=== PATIENT | male | born 1995 | race Caucasian/White ===

== ENCOUNTER 2025-06-07 12:33 | Emergency (ER) | payer BC, SELFPAY ==
[2025-06-07 12:44] VITALS: BP 127/90; PULSE 110; RESP 16; TEMP 37.1; O2SAT 99; BMI 31.7
--- NOTE | 2025-06-07 13:59 | ECG_ITS ---
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 Measurements Intervals [place] Rate: 106 P: 46 HI: 148 QRS: 22 QRSD: 98 T: 35 QT: 316 QTc: 421 Interpretive Statements SINUS TACHYCARDIA LOW QRS VOLTAGE IN PRECORDIAL LEADS [QRS DEFLECTION < 1.0 mV IN CHEST LEADS] ABNORMAL RHYTHM ECG No previous ECG available for comparison Electronically Signed On 06-08-2025 18:11:45 CDT by David Braden M.D. [id number]
--- NOTE | 2025-06-07 14:13 | ED_ITS ---
HPI - Chest Pain 2 General: Chief Complaint: Chest Pain Stated Complaint: cp, high bp, pain and tingling in L arm and legs Time Seen by Provider: 06/07/25 14:00 History of Present Illness: 29-year-old male presents emergency room complaining of nausea and vomiting. Patient states he said intermittent chest pain for months. It is worse today. He has had nausea and vomiting yesterday and today has also had some palpitations. He seen his primary care doctor about 3 weeks ago was started on bupropion for anxiety. He is not having chest pain at this time. Associated symptoms: Deny abdominal pain, dyspnea or fever(s) Related Data Previous Rx's ?Medication ?Instructions ?Recorded hydroxyzine pamoate 25 mg capsule 25 mg PO BID PRN itc joesph #20 caps 04/23/25 nystatin 100,000 unit/gram topical 1 applic topical BI D 5 days #30 04/23/25 cream grams nystatin 100,000 unit/gram topical 1 applic topical BI D #30 grams 04/23/25 powder omeprazole 20 mg tablet,delayed 20 mg PO BID #60 tabs 05/04/25 release bupropion HCl 150 mg 24 hr tablet, 150 mg PO QAM #30 t abs 06/03/25 extended release (Wellbutrin XL) pantoprazole 40 mg tablet,delayed 40 mg PO BID 10 days #40 tabs 06/07/25 release (Protonix) Allergies Allergy/AdvReac Type Severity Reaction Status Date / Time No Known Allergies Allergy Verified 05/04/25 13:36 Review of Systems 2 Const: Denies: fever(s) or chills Card: Denies: chest pain Resp: Denies: dyspnea GI: Denies: abdominal pain : Denies: dysuria, urinary frequency or urinary urgency Musc: Denies: neck pain or back pain Skin/Breast: Denies: rash PFSH ED 2 PFSH: Surgical History No pertinent past surgical history Family History Grandfather Heart disease Father Renal cancer Mother Depression Social History Smoking and tobacco/nicotine status: current every day tobacco/nicotine user (vape) Physical Exam 2 Const: COMMON NORMALS: no acute distress GENERAL APPEARANCE: cooperative and comfortable ORIENTATION/CONSCIOUSNESS: Yes awake, Yes oriented to person, Yes oriented to place and Yes oriented to time HENMT: COMMON NORMALS: normocephalic, atraumatic and hearing grossly normal bilaterally HEAD & SCALP: normocephalic and atraumatic Resp: COMMON NORMALS: normal respiratory effort, No retractions, No use of accessory muscles and clear to auscultation bilaterally AUSCULTATION: clear to auscultation bilaterally Cardio: COMMON NORMALS: regular rate, regular rhythm and No murmurs present (Cardio) RATE: regular rate RHYTHM: regular rhythm GI: COMMON NORMALS: Soft to palpation and No hepatosplenomegaly present A USCULTATION: Yes normoactive bowel sounds PALPATION: Yes Soft to palpation, No Tenderness to palpation present (GI), No Guarding due to palpation present (GI) and Yes No hepatosplenomegaly present Extremity: COMMON NORMALS: normal to inspection, capillary refill normal, no clubbing, cyanosis or edema, no calf tenderness and no pedal edema Neuro: SENSORIUM/ORIENTATION: Yes oriented to person, Yes oriented to place and Yes oriented to time Skin: COMMON NORMALS: no rashes or lesions noted GENERAL SKIN EXAM: no rashes or lesions noted Course 2 Vital Signs: Vital signs: Vital Signs Temperature 98.7 F 06/07/25 12:44 Pulse Rate 86 06/07/25 15:02 Respiratory Rate 16 06/07/25 12:44 Blood Pressure 125/80 06/07/25 15:02 Pulse Oximetry 93 06/07/25 15:02 Oxygen Delivery Me thod Room Air 06/07/25 12:44 MDM - Chest Pain Medical Decision Making Labs and imaging reviewed. Chest x-ray negative EKG does not show any acute changes patient has had symptoms for months troponins are normal. Suspect this is more GI in nature will stop his omeprazole increase pantoprazole to 4040 twice daily for 10 days then 40 daily follow-up with his primary care doctor. If symptoms worsen or change return. Reviewed findings with patient. Medical Records I reviewed the patient's medical records. Lab Data I reviewed the patient's lab results. 06/07/25 14:16 06/07/25 14:16 Radiology Impressions Chest X-Ray 06/07/25 14:13 IMPRESSION: No acute findings. Laboratory Results WBC 12.16 10^3/uL (3.29-11.43) H 06/07/25 14:16 RBC 5.38 10^6/uL (3.85-5.65) 06/07/25 14:16 Hgb 15.70 g/dL (11.27-16.99) 06/07/25 14:16 Hct 45.4 % (37-53) 06/07/25 14:16 MCV 84.4 fl (82-101) 06/07/25 14:16 MCH 29.2 pg (27-33) 06/07/25 14:16 MCHC 34.6 g/dL (30-55) 06/07/25 14:16 RDW 12.7 % (12.1-15.1) 06/07/25 14:16 Plt Count 237 10^3/cmm (157-399) 06/07/25 14:16 MPV 11.4 fL (7.4-10.4) H 06/07/25 14:16 Neut % (Auto) 90.2 % 06/07/25 14:16 Lymph % (Auto) 5.5 % 06/07/25 14:16 Gulf % (Auto) 3.7 % 06/07/25 14:16 Eos % (Auto) 0.1 % 06/07/25 14:16 Baso % (Auto) 0.2 % 06/07/25 14:16 Neut # (Auto) 10.97 10^3/uL (1.8-7.7) H 06/07/25 14:16 Lymph # (Auto) 0.7 10^3/uL (0.8-4.8) L 06/07/25 14:16 [place] # (Auto) 0.5 10^3/uL (0.2-0.9) 06/07/25 14:16 Eos # (Auto) 0.0 10^3/uL (0.0-0.8) 06/07/25 14:16 Baso # (Auto) 0.0 10^3/uL (0.0-0.1) 06/07/25 14:16 Nucleated RBC % (auto) 0 % 06/07/25 14:16 Nucleated RBCs # 0.0 /100WBC 06/07/25 14:16 Sodium 138 mmol/L (136-145) 06/07/25 14:16 Potassium 4.2 mmol/L (3.5-5.1) 06/07/25 14:16 Chloride 101 mmol/L (98-107) 06/07/25 14:16 Carbon Dioxide 24 mmol/L (22-29) 06/07/25 14:16 Anion Gap 17.2 (5-19) 06/07/25 14:16 BUN 16 mg/dL (6-20) 06/07/25 14:16 Creatinine 0.9 mg/dL (0.7-1.2) 06/07/25 14:16 GFR Calculation 99.8 mL/min (90-130) 06/07/25 14:16 Glucose 109 mg/dL (65-115) 06/07/25 14:16 Calculated Osmolality 288 mOsm/kg (285-295) 06/07/25 14:16 Calcium 9.0 mg/dL (8.5-10.5) 06/07/25 14:16 Total Bilirubin 0.7 mg/dL (0.15-1.2) 06/07/25 14:16 AST 23 U/L (0-40) 06/07/25 14:16 ALT 30 U/L (0-41) 06/07/25 14:16 Alkaline Phosphatase 84 U/L (40-130) 06/07/25 14:16 Troponin T Baseline < 6 ng/L (0-15) 06/07/25 14:16 Troponin T 120 Minute < 6.0 ng/L (0-15) 06/07/25 15:58 Delta Troponin T 0 ABS# (0-10) 06/07/25 15:58 Total Protein 7.3 g/dL (6.6-8.7) 06/07/25 14:16 Albumin 4.7 g/dL (3.5-5.2) 06/07/25 14:16 Globulin 2.6 g/dL (1.3-4.6) 06/07/25 14:16 All radiology interpretation(s) finalized by discharge EKG Data EKG 1: Interpretation: EKG 06/07/2025 1240 sinus tachycardia rate 106 parable 148 QTc 421 EKG 2: Interpretation: EKG 06/07/2025 1525 sinus rhythm with no acute ST changes. EKG done earlier earlier today showed sinus tachycardia which has resolved no other abnormalities. Discharge Plan Discharge Patient Disposition: Home Clinical Impression: Atypical chest pain Condition: Stable Prescriptions: New pantoprazole [Protonix] 40 mg tablet,delayed release (DR/EC) 40 mg PO BID 10 Days Qty: 40 0RF Rx Instructions: 1 p.o. twice daily x 10 days and 1 p.o. daily No Action hydroxyzine pamoate 25 mg capsule 25 mg PO BID PRN (Reason: itching) Qty: 20 0RF nystatin 100,000 unit/gram cream 1 applic topical BID 5 Days Qty: 30 0RF nystatin 100,000 unit/gram powder 1 applic topical BID Qty: 30 0RF omeprazole 20 mg tablet,delayed release (DR/EC) 20 mg PO BID Qty: 60 0RF bupropion HCl [Wellbutrin XL] 150 mg tablet extended release 24 hr 150 mg PO QAM Qty: 30 0RF Discharge Orders: Discharge ED (Routine); Ordered 06/07/25 Ordered By: Zaki Freedman Referrals: Eliana Ernandez DO [Primary Care Provider, Family Practice] Discharge Activity: Resume usual activity Patient Instructions: Opioid Safety, Pain Management, Patient Portal & Roberto Instructions Activity Restrictions/Additional Instructions: [facility] It is very important that you follow up as instructed or that you return to the Emergency Department should you have concerns or if your condition changes or worsens in any way. Emergency department visits are focused on emergent conditions, in some cases you may require further evaluation on an outpatient basis. You were seen in the emergency room with complaints of chest comfort. You related to having had this for several months. Your cardiac enzymes and EKG did not show any acute changes. Currently no signs of acute coronary syndrome recommend stopping the omeprazole and instead taking pantoprazole 40 mg 1 pill twice a day for 10 days then 1 pill daily follow-up with your primary care doctor. (Please note that included in your discharge packet is information concerning opioid safety and pain management. This information is given to all patients were discharged from the ER regardless of their discharge diagnosis or the medicines they usually take or are prescribed.) Print Language: Hebrew Coding Level of Care Code ED Curing Bin Operator for Marta Rothman
--- NOTE | 2025-06-07 14:13 | XRR_ITS ---
PROCEDURE INFORMATION: Exam: XR Chest Exam date and time: 06/07/2025 2:15 PM Age: 29 years old Clinical indication: Pain; Angina pectoris; Additional info: Chest pain TECHNIQUE: Imaging protocol: Radiologic exam of the chest. Views: 1 view. COMPARISON: No relevant prior studies available. FINDINGS: Lungs: Unremarkable. No consolidation. Pleural spaces: No pneumothorax. Heart/Mediastinum: Unremarkable. No cardiomegaly. Bones/joints: Unremarkable. XR/XR chest 1V portable [id number] IMPRESSION: No acute findings.
[2025-06-07 14:23] LABS: Hematocrit 45.4 % (37-53); Hemoglobin 15.70 g/dL (11.27-16.99); Mean Corpuscular HGB Conc 34.6 g/dL (30-55); Mean Corpuscular Hemoglobin 29.2 pg (27-33); Mean Corpuscular Volume 84.4 fl (82-101); Nucleated Red Blood Cells % 0 %; Platelet Count 237 10^3/cmm (157-399); Red Blood Count 5.38 10^6/uL (3.85-5.65); White Blood Count 12.16 10^3/uL (3.29-11.43)
[2025-06-07 14:40] LABS: Alanine Aminotransferase 30 U/L (0-41); Albumin Level 4.7 g/dL (3.5-5.2); Alkaline Phosphatase 84 U/L (40-130); Anion Gap 17.2 (5-19); Aspartate Amino Transferase 23 U/L (0-40); Blood Urea Nitrogen 16 mg/dL (6-20); Calcium 9.0 mg/dL (8.5-10.5); Carbon Dioxide 24 mmol/L (22-29); Chloride 101 mmol/L (98-107); Creatinine Clr Calc Pharmacy 139.4845; Globulin 2.6 g/dL (1.3-4.6); Glucose 109 mg/dL (65-115); Osmolality Calculated 288 mOsm/kg (285-295); Potassium 4.2 mmol/L (3.5-5.1); Sodium 138 mmol/L (136-145); Total Protein 7.3 g/dL (6.6-8.7)
[2025-06-07 14:42] LABS: Troponin(5th) Baseline < 6 ng/L (0-15)
[2025-06-07 15:02] VITALS: BP 125/80; PULSE 86; O2SAT 93
[2025-06-07] MEDS: lidocaine 2% viscous 15 ML, aluminum-mag hydrox-simethicon 30 ML, sucralfate oral liq 1 GM PO (15:21)
[2025-06-07] MEDS: pantoprazole 40 mg SDV 80 MG IVP (15:21)
--- NOTE | 2025-06-07 15:25 | ECG_ITS ---
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 Measurements Intervals [place] Rate: 96 P: 45 MO: 169 QRS: -7 QRSD: 105 T: 30 QT: 343 QTc: 433 Interpretive Statements SINUS RHYTHM LOW QRS VOLTAGE IN PRECORDIAL LEADS [QRS DEFLECTION < 1.0 mV IN CHEST LEADS] Compared to ECG 06/07/2025 12:40:51 Sinus tachycardia no longer present Electronically Signed On 06-08-2025 18:10:46 CDT by David Braden M.D. [id number] [id number]
[2025-06-07 16:53] LABS: Troponin 5 2HR < 6.0 ng/L (0-15); Troponin 5 2HR Delta 0 ABS# (0-10)
== END 2025-06-07 17:33 | disposition home or self-care (01) ==
PROVIDERS: Emergency Provider Family Medicine; PCP Family Medicine
DX: R07.89 Other chest pain (principal); F17.290 Nicotine dependence, other tobacco product, uncomplicated
CPT/HCPCS: 36415; 71045; 80053; 84484; 85025; 93005; 96374; 99285; J2470; J7030; J9999